=== PATIENT | male | born 1990 | race Caucasian/White ===

== ENCOUNTER 2025-08-11 04:33 | Emergency (ER) | payer OTHER ==
[~2025-08-11] VITALS: Ht 170.2 cm; Wt 88.0 kg
--- NOTE | ~2025-08-11 | EKG ---
[facility] [address] [place], [place] [address] Draft EK completed, results pending confirmation PATIENT NAME: ELSA ASHER Electrocardiogram DATE OF : 86 PHYSICIAN: PRELIMINARY REPORT #: [id number] REPORT IS CONFIDENTIAL AND NOT TO BE RELEASED WITHOUT AUTHORIZATION
[2025-08-11] MEDS ORDERED: NITROGLYCERIN PACKET TOP ONE (04:45)
[2025-08-11] MEDS ORDERED: ASPIRIN 81 MG CHEW PO ONE (04:45)
[2025-08-11 04:58] LABS: BASOPHILS 0.6 % (0.2-1.2); EOSINOPHILS 3.0 % (0.8-7.0); LYMPHOCYTES 30.8 % (21.8-53.1); MCH 30.9 PG (25.7-32.2); MCHC 34.8 g/dL (32.3-36.5); MCV 88.8 fL (79.0-92.2); MONOCYTES 9.2 % (5.3-12.2); NEUTROPHILS 56.1 % (34.0-67.9); RBC 4.72 M/uL (4.63-6.08)
[2025-08-11 05:19] LABS: INR 1.01 (0.80-1.30); PROTIME 12.6 Sec (11.2-14.2)
[2025-08-11 05:26] LABS: ALT (SGPT) 36.0 U/L (14-59); AST (SGOT) 17.0 U/L (15-37); GLOMERULAR FILTRATION RATE,EST 91.0 mL/min (>60); PROTEIN, TOTAL 7.3 g/dL (6.4-8.2); UREA NITROGEN 11.0 mg/dL (7-18)
[2025-08-11] MEDS ORDERED: CYCLOBENZAPRINE10 MG PO (06:00)
[2025-08-11 06:09] VITALS: BP 137/87
== END 2025-08-11 06:10 | disposition home or self-care (01) ==
LOC: ED 04:33
PROVIDERS: Family Medicine
DX: R07.89 Other chest pain (principal)
CPT/HCPCS: 36415; 71045; 80053; 83735; 83880; 84484; 85025; 85610; 93005; 93010; 99285-25; A9270